=== PATIENT | female | born 1985 | race Caucasian/White ===

== ENCOUNTER 2019-04-05 11:51 | Outpatient (CLI) | payer OTHER, SELFPAY ==
--- NOTE | ~2019-04-05 | CT_ITS ---
EXAMINATION: CT abdomen pelvis w con DATE: 04/05/2019 12:56 INDICATION: Right lower quadrant abdominal pain. TECHNIQUE: Computed tomography (CT) of the abdomen and pelvis was performed with 100 mL Omnipaque 350 intravenous contrast. Automated exposure control and iterative reconstruction technique were employe d. The dose-length product was 1349.09 mGy-cm. COMPARISON: CT abdomen and pelvis 11/26/2017 FINDINGS: The visualized portions of the lung bases demonstrate mild atelectasis. No pleural effusion . The heart size is normal. No pericardial effusion. There is a small sliding hiatal hernia. There is a 9 mm cyst in the liver. There is a 2.6 cm cyst in the spleen. The gallbladder, pancreas, adrenal g lands, and kidneys are normal. There are no dilated loops of bowel. The appendix is normal. There is a 2.8 cm cyst in right ovary, likely a follicular cyst. There are no pathologically enlarged lymph no homar. There is no free intraperitoneal fluid. There is mild thoracolumbar spondylosis. IMPRESSION: 1. 2.8 cm cyst in right ovary, likely a follicular cyst. Reviewed, dictated and finalized at location A. LOADER
== END 2019-04-05 11:52 | disposition home or self-care (01) ==
LOC: ANHIMG 12:06
DX: R10.31 Right lower quadrant pain (principal); N83.201 Unspecified ovarian cyst, right side
CPT/HCPCS: 74177; Q9967

== ENCOUNTER 2019-06-21 16:51 | Emergency (ER) | payer OTHER, SELFPAY ==
[2019-06-21 16:59] VITALS: BP 151/83; PULSE 82; RESP 20; TEMP 36.7; O2SAT 97
--- NOTE | 2019-06-21 17:08 | ED.ABDPAIN ---
HPI - Abdominal Pain General Chief Complaint: Abdominal Pain <Bartolome Sheppard PA-C - Last Filed: 06/21/19 19:18> Stated Complaint: vomiting/9 weeks <Bartolome Sheppard PA-C - Last Filed: 06/21/19 19:18> Time Seen by Provider: 06/21/19 16:52 <Bartolome Sheppard PA-C - Last Filed: 06/21/19 19:18> Source: patient <Bartolome Sheppard PA-C - Last Filed: 06/21/19 19:18> Mode of arrival: ambulatory <Bartolome Sheppard PA-C - Last Filed: 06/21/19 19:18> Limitations: no limitations <Bartolome Sheppard PA-C - Last Filed: 06/21/19 19:18> History of Present Illness HPI narrative: Patient is a 34-year-old who presents at 9 weeks per ultrasound followed by [facility] patient is G6, P5. Patient notes that she has history of in this suspected subchorionic hemorrhage and has had some light spotting which has been persistent since the fifth week. Patient also notes some constipation with mild cramping of the abdomen for which she has not taken anything patient notes multiple episodes of emesis over the last several days has attempted Zofran and used a patch behind the ear. Patient denies fever URI symptoms or other complaints presents per private vehicle in no distress. <Bartolome Sheppard PA-C - Last Filed: 06/21/19 19:18> Related Data Allergies/Adverse Reactions: Allergies Allergy/AdvReac Type Severity Reaction Status Date / Time No Known Allergies Allergy Unverified 03/21/16 12:14 <Bartolome Sheppard PA-C - Last Filed: 06/21/19 19:18> Review of Systems Review of Systems: All systems reviewed & are unremarkable except as noted in HPI and below <Bartolome Sheppard PA-C - Last Filed: 06/21/19 19:18> [facility] Social History Social History: Social History Smoking status: Never smoker Alcohol intake: current Gender identity (if verbalized by the patient): Female <Bartolome Sheppard PA-C - Last Filed: 06/21/19 19:18> Exam Narrative: Exam Narrative: GENERAL: Well-appearing, obese, and in no acute distress. HEAD: Normocephalic, atraumatic. EYES: PERRLA and EOMI. ENT: Nares clear, no rhinorrhea or epistaxis. Mucous membranes moist. Oropharynx without tonsillar hypertrophy exudate or other lesions. CHEST: Clear to auscultation. No respiratory distress. No wheezes rales or rhonchi HEART: Regular rate and rhythm. No murmur heard. Normal peripheral pulses. ABDOMEN: Soft, mild tenderness of the abdomen no rebound or guarding, nondistended EXTREMITIES: Normal range of motion. No edema. SKIN: Warm, dry, no rash. NEURO: No focal deficits. Alert and oriented x3. PSYCH: Normal mood and affect. <SUNNY Fisher Last Filed: 06/21/19 19:18> Course Course Emergency Course: Patient in the room in no distress no high risk changes in the blood work will be discharged home with a different antiemetic also given advice on constipation patient was hydrated in the emergency department is feeling much better at this time <SUNNY Fisher Last Filed: 06/21/19 19:18> Vital Signs Vital signs: Vital Signs Temperature 36.7 C 06/21/19 16:59 Pulse Rate 82 06/21/19 16:59 Respiratory Rate 20 06/21/19 16:59 Blood Pressure 151/83 H 06/21/19 16:59 Pulse Oximetry 97 06/21/19 16:59 Temperature 36.7 C 06/21/19 16:59 Pulse Rate 84 06/21/19 19:49 Respiratory Rate 20 06/21/19 19:49 Blood Pressure 146/80 H 06/21/19 19:49 Pulse Oximetry 99 06/21/19 19:49 <SUNNY Fisher Last Filed: 06/21/19 19:18> Vital Signs Temperature 36.7 C 06/21/19 16:59 Pulse Rate 82 06/21/19 16:59 Respiratory Rate 20 06/21/19 16:59 Blood Pressure 151/83 H 06/21/19 16:59 Pulse Oximetry 97 06/21/19 16:59 Temperature 36.7 C 06/21/19 16:59 Pulse Rate 84 06/21/19 19:49 Respiratory Rate 20 06/21/19 19:49 Blood Pressure 146/80 H 06/21/19 19:49
[2019-06-21 17:58] VITALS: BP 113/66; PULSE 74; RESP 20; O2SAT 98
[2019-06-21 18:15] LABS: Basophils Percent Auto 0.3 % (0.2-1.2); Eosinophils Absolute Auto 0.2 K/mm3 (0-0.3); Eosinophils Percent Auto 1.5 % (0-4.4); Hematocrit 38.8 % (37.0-47.0); Hemoglobin 12.7 g/dL (12.0-15.0); Immature Granulocyte Absolute 0.05 K/mm3 (0.00-0.031); Immature Granulocyte Percent A 0.4 % (0-0.5); Lymphocytes Absolute Auto 1.67 K/mm3 (0.9-3.2); Lymphocytes Percent Auto 14.3 % (18.3-44.2); Mean Corpuscular HGB Conc 32.7 g/dl (32-36); Mean Corpuscular Hemoglobin 28.6 pg (26-34); Mean Corpuscular Volume 87.4 fl (80-100); Mean Platelet Volume 11.9 fl (7.4-10.4); Monocytes Absolute Auto 0.7 K/mm3 (0.1-0.6); Monocytes Percent Auto 5.9 % (2.6-8.5); Neutrophils Percent Auto 77.6 % (45.5-73.1); Platelet Count Result 202 k/mm3 (150-375); Red Blood Count 4.44 M/mm3 (4.2-5.4); White Blood Count 11.7 K/mm3 (4.5-10.0)
[2019-06-21] MEDS: PROCHLORPERAZINE EDISYLATE 10 MG/2 ML VIAL IV PUSH (18:20)
[2019-06-21] MEDS: FAMOTIDINE 20 MG/2 ML VIAL IV PUSH (18:21)
[2019-06-21] MEDS: DEXTROSE 5%/LACTATED RINGERS 1,000 ML 999 ML IV CONT (18:22)
[2019-06-21 18:27] LABS: Potassium 3.8 mmol/L (3.4-5.0)
[2019-06-21 18:28] LABS: Alanine Aminotransferase 14 U/L (4-35); Albumin Level 4.3 g/dL (3.5-5.1); Alkaline Phosphatase 44 U/L (38-126); Aspartate Amino Transferase 17 U/L (14-36); Bilirubin,Total 0.1 mg/dL (0.2-1.3); Blood Urea Nitrogen 11 mg/dL (7-17); Calcium 9.4 mg/dL (8.4-10.2); Carbon Dioxide 24 mmol/L (22-30); Chloride 103 mmol/L (98-107); Estimated CRCL calculation 142 ml/min; Estimated Glomerular Filt Rate > 60; Glucose 100 mg/dL (65-105); Lipase 31 U/L (23-300); Sodium 136 mmol/L (137-145)
[2019-06-21 19:12] LABS: Add Urine Microscopic? YES; Appearance Urine Cloudy (Clear); Bilirubin Urine Negative (Negative); Blood Urine 2+ (Negative); Color Urine Yellow (Yellow); Glucose Urine UA Negative (Negative); Ketones Urine 1+ mg/dL (Negative); Leukocyte Esterase Ur Negative LEU/UL (Negative); Mucus Urine Heavy /lpf; Nitrate Urine Negative (Negative); Protein Urine 1+ mg/dL (Negative); Renal Epithelial Cells Urine Rare /hpf (None Seen); Specific Grav Ur 1.032 (1.001-1.035); Squamous Epithelial Cell Urine Many /hpf (Few); Urobilinogen Urine Negative mg/dL (<2.0)
[2019-06-21 19:49] VITALS: BP 146/80; PULSE 84; RESP 20; O2SAT 99
== END 2019-06-21 19:52 | disposition home or self-care (01) ==
PROVIDERS: Emergency Medicine Emergency Medical Services; Emergency Provider Emergency Medicine
DX: O21.9 Vomiting of pregnancy, unspecified (principal); O99.611 Diseases of the digestive system complicating pregnancy, first trimester; K59.00 Constipation, unspecified; Z3A.09 9 weeks gestation of pregnancy
CPT/HCPCS: 36415; 80053; 81001; 83690; 85025; 87086; 87088; 96361; 96374; 96375; 99284; J0780; J1200; J7121

== ENCOUNTER 2019-11-01 15:52 | Outpatient (RCR) | payer OTHER, MEDICAID, SELFPAY ==
[2019-11-01 17:26] LABS: Hematocrit 35.1 % (37.0-47.0); Hemoglobin 11.6 g/dL (12.0-15.0)
[2019-11-01 17:39] LABS: Glucose 1 Hour PP 50gm Dose 156 mg/dL
[2019-11-01 18:26] LABS: HIV 1/2 Ab P24 Ag Result Negative (Negative)
[2019-11-02 09:31] LABS: Rapid Plasma Reagin Non-Reactive (NonReactive)
[2019-11-02] MEDS: RHO(D) IMMUNE GLOBULIN 300 MCG SYRINGE IM (15:14)
== END 2020-01-30 23:59 | disposition home or self-care (01) ==
LOC: ANHLAB 15:52
PROVIDERS: Visit Provider Obstetrics & Gynecology
DX: Z29.13 Encounter for prophylactic Rho(D) immune globulin (principal); Z11.4 Encounter for screening for human immunodeficiency virus [HIV]; O36.0130 Maternal care for anti-D [Rh] antibodies, third trimester, not applicable or unspecified; Z3A.00 Weeks of gestation of pregnancy not specified
CPT/HCPCS: 36415; 82947; 84443; 85014; 85018; 85461; 86592; 86703; 90384; 96372; G0432; J2790

== ENCOUNTER 2019-12-01 12:44 | Emergency (ER) | payer OTHER, MEDICAID, SELFPAY ==
[2019-12-01 12:50] VITALS: BP 109/63; PULSE 106; RESP 24; TEMP 36.7; O2SAT 98
--- NOTE | 2019-12-01 12:56 | ED.GENADULT ---
HPI - General Adult General Chief complaint: Upper Respiratory Infection Stated complaint: RUNNY NOSE/SORE THROAT/HEADACHE Time Seen by Provider: 12/01/19 12:56 Source: patient Mode of arrival: ambulatory Limitations: no limitations History of Present Illness HPI narrative: 34-year-old female patient presents to the [facility] with complaints of cold symptoms for the past 3 days. Patient is currently 33 weeks . Patient currently is on Macrobid for urinary tract infection. Patient states she has had a lot of nasal congestion and drainage, sinus pressure, headache and a sore throat. Patient states some mild coughing and sometimes does produce sputum with the cough. Denies any chest pain or shortness of breath. Patient states that she has been taking [id number] Zyrtec for her symptoms as well as montelukast for allergies. Patient denies any abdominal pain, nausea, vomiting or diarrhea. Related Data Home Medications Medication Instructions Recorded Confirmed levothyroxine [Synthroid] 12/01/19 nitrofurantoin monohyd/m-cryst 100 mg PO Q12H 12/01/19 12/01/19 [Macrobid] Allergies Allergy/AdvReac Type Severity Reaction Status Date / Time No Known Allergies Allergy Verified 12/01/19 12:49 Review of Systems Review of Systems: Narrative: CONSTITUTIONAL: Denies fever, chills, or sweats. EYES: Denies visual changes, redness, or discharge. ENT: Positive rhinorrhea, congestion, sore throat, denies otalgia. CARDIOVASCULAR: Denies chest pain, palpitations, or edema. RESPIRATORY: Positive cough, denies dyspnea. GASTROINTESTINAL: Denies abdominal pain, nausea, vomiting, or diarrhea. GENITOURINARY: Denies dysuria or hematuria. SKIN: Denies rash or itching. MUSCULOSKELETAL: Denies back pain, joint pain, or myalgia. NEUROLOGIC: Positive headache, denies numbness, or weakness. PSYCHIATRIC: Denies anxiety or depression. [facility] Social History Social History Smoking status: Never smoker Alcohol intake: current Gender identity (if verbalized by the patient): Female Comments At the time of my signature I agree with nursing past medical history, surgical, social, and family history. There is no relevant family history pertinent to the presenting complaint. Exam Narrative: Exam Narrative: GENERAL: Well-appearing, well-nourished, and in no acute distress. HEAD: Normocephalic, atraumatic. EYES: PERRLA and EOMI. ENT: Nares with erythema and edema noted bilaterally with the right nare swollen shut, no rhinorrhea or epistaxis. Mucous membranes moist. Posterior pharynx with slight erythema and some postnasal drip noted. No tonsil enlargement no exudates or lesions present. Bilateral TMs are clear no erythema or foreign bodies to the canal. NECK: Supple. No lymphadenopathy CHEST: Patient did have some slight expiratory rhonchi noted on auscultation to the bilateral upper lobes however did have patient deep cough and afterwards the rhonchi disappeared. No respiratory distress. HEART: Regular rate and rhythm. No murmur heard. Normal peripheral pulses. ABDOMEN: Soft, nontender, nondistended, normal active bowel sounds. EXTREMITIES: Normal range of motion. No edema. SKIN: Warm, dry, no rash. NEURO: No focal deficits. Alert and oriented x3. Course Reevaluation(s) Reevaluation #1: Reevaluated patient after labs have resulted. Discussed with her that her strep and her influenza were both negative today. Discussed with patient we will go ahead and send her for COVID testing. Discussed with patient that if her symptoms get worse that she develops chest pain, shortness of breath or worsening cough that she needs to report to the emergency department. Discussed with patient that she can continue taking [id number] remedies and I have provided her a list of safe medications that she can try [id number]. Patient verbalized understanding denies any other question
== END 2019-12-01 13:33 | disposition home or self-care (01) ==
PROVIDERS: Emergency Provider Nurse Practitioner Family
DX: O99.513 Diseases of the respiratory system complicating pregnancy, third trimester (principal); Z3A.33 33 weeks gestation of pregnancy; J06.9 Acute upper respiratory infection, unspecified; J00 Acute nasopharyngitis [common cold]; J01.90 Acute sinusitis, unspecified; Z20.828 Contact with and (suspected) exposure to other viral communicable diseases
CPT/HCPCS: 87081; 87804; 87880; 99213; G0463

== ENCOUNTER 2019-12-15 17:23 | Observation (INO) | payer OTHER, MEDICAID, SELFPAY ==
[2019-12-15 17:53] VITALS: BP 115/70; PULSE 111
[2019-12-15 17:55] VITALS: BMI 44.1
--- NOTE | 2019-12-15 17:58 | OBADM ---
This patient, Donita Medina, admitted to the OB room OB Post 115 for observation. Patient/family oriented to hospital policies and general routines including ID bracelet, bed and alarms, visiting hours, pain management, procedures, bathroom and other care routines, personal items, smoking policy, room service/diet, call light, and visiting hours. Patient/Family are encouraged to report perceived risks to care and to ask questions if they do not understand what they are told or what they should do.
--- NOTE | 2019-12-15 19:54 | PC.NURSE ---
reactive strip noted, FHT's 135 with 15x15 accels, no contractions noted.
--- NOTE | 2019-12-22 16:16 | PM.OBTRLD ---
OB - Triage/Final Diagnosis Visit Information Date of evaluation: 12/19/19 Reason for evaluation: threatened labor
== END 2019-12-15 19:20 | disposition home or self-care (01) ==
PROVIDERS: Admitting Provider Obstetrics & Gynecology; PCP Family Medicine; Visit Provider Obstetrics & Gynecology
DX: O47.03 False labor before 37 completed weeks of gestation, third trimester (principal); Z3A.34 34 weeks gestation of pregnancy
CPT/HCPCS: 84112; G0378; G0379

== ENCOUNTER 2019-12-27 12:37 | Observation (INO) | payer OTHER, MEDICAID, SELFPAY ==
--- NOTE | ~2019-12-27 | US_ITS ---
EXAMINATION: US OB BPP wo non-stress DATE: 12/27/2019 16:05 CDT INDICATION: decelerations. TECHNIQUE: Real-time transabdominal obstetric ultrasound. FINDINGS: There is a single living fetus in vertex presentation. The placenta is fundal/anterior without place nta previa. cardiac activity and movement is noted with a heart rate of 132 beats per minute. Biophysical profile: breathin of 2 movement: 2 of 2 tone: 2 of 2 Amniotic flud pocket: 2 of 2 Total score: 8 of 8 There is a pocket of fluid measuring 3.2 cm, although the amniotic fluid appears subjectively low. IMPRESSION: 1. Single living intrauterine in vertex presentation. 2: Total biophysical profile score of 8/8. 3: Amniotic fluid appears subjectively low, although no JOHN performed. Recommend attention to the am niotic fluid volume on follow-up examination. Reviewed, dictated and finalized at location B. IMPRESSION: 1. Single living intrauterine in vertex presentation. 2: Total biophysical profile score of 8/8. 3: Amniotic fluid appears subjectively low, although no JOHN performed. Recomme nd attention to the amniotic fluid volume on follow-up examination.
--- NOTE | 2019-12-27 12:37 | OBADM ---
This patient, Donita Medina, admitted to the OB room Labor/Delivery/Recovery 105 for observation. Patient/family oriented to hospital policies and general routines including ID bracelet, bed and alarms, visiting hours, pain management, procedures, bathroom and other care routines, personal items, smoking policy, room service/diet, and visiting hours. Patient/Family are encouraged to report perceived risks to care and to ask questions if they do not understand what they are told or what they should do.
[2019-12-27 13:20] VITALS: TEMP 36.6
[2019-12-27 17:03] VITALS: BMI 44.4
--- NOTE | 2019-12-30 03:06 | PM.OBTRLD ---
OB - Triage/Final Diagnosis Visit Information Date of evaluation: 12/26/19 Reason for evaluation: threatened labor
== END 2019-12-27 16:15 | disposition home or self-care (01) ==
PROVIDERS: Admitting Provider Obstetrics & Gynecology; PCP Family Medicine; Visit Provider Obstetrics & Gynecology
DX: O47.03 False labor before 37 completed weeks of gestation, third trimester (principal); Z3A.36 36 weeks gestation of pregnancy
CPT/HCPCS: 76819; G0378; G0379

== ENCOUNTER 2020-01-07 05:01 | Inpatient (IN) | payer OTHER, MEDICAID, SELFPAY ==
[2020-01-07] VITALS (60 sets, daily range): BP systolic 79–126; BP diastolic 40–82; PULSE 77–121; RESP 12; TEMP 36.3–36.6; O2SAT 96–100; BMI 43.7
--- NOTE | 2020-01-07 05:38 | LDADM ---
This patient, Donita Medina, was admitted to Labor/Delivery/Recovery 106 on 01/07/20 at 05:01. Plans for labor, pain management and were discussed with patient. Patient/family oriented to hospital policies and general routines including ID bracelet, bed and alarms, visiting hours, pain management, procedures, bathroom and other care routines, personal items, smoking policy, room service/diet and guest tray routines, security routines, and visiting hours. Patient/Family are encouraged to report perceived risks to care and to ask questions if they do not understand what they are told or what they should do. See OBIX for further documentation.
[2020-01-07 05:54] LABS: Basophils Percent Auto 0.2 % (0.2-1.2); Eosinophils Absolute Auto 0.1 K/mm3 (0-0.3); Eosinophils Percent Auto 1.3 % (0-4.4); Hematocrit 36.2 % (37.0-47.0); Hemoglobin 11.9 g/dL (12.0-15.0); Immature Granulocyte Absolute 0.07 K/mm3 (0.00-0.031); Immature Granulocyte Percent A 0.7 % (0-0.5); Lymphocytes Absolute Auto 1.71 K/mm3 (0.9-3.2); Lymphocytes Percent Auto 16.8 % (18.3-44.2); Mean Corpuscular HGB Conc 32.9 g/dl (32-36); Mean Corpuscular Hemoglobin 28.2 pg (26-34); Mean Corpuscular Volume 85.8 fl (80-100); Mean Platelet Volume 12.5 fl (7.4-10.4); Monocytes Absolute Auto 0.7 K/mm3 (0.1-0.6); Monocytes Percent Auto 6.7 % (2.6-8.5); Neutrophils Absolute Auto 7.6 K/mm3 (1.3-6.7); Neutrophils Percent Auto 74.3 % (45.5-73.1); Platelet Count Result 171 k/mm3 (150-375); Red Blood Count 4.22 M/mm3 (4.2-5.4); Red Cell Distribution Width 15.5 % (11.5-14.5); White Blood Count 10.2 K/mm3 (4.5-10.0)
[2020-01-07] MEDS: LACTATED RINGERS 1,000 ML 125 ML IV CONT ×2 (05:54→06:20)
--- NOTE | 2020-01-07 07:09 | WPDANESEPP ---
Anes - Eval Pre Procedure Procedure: Labor epidural Date/Time: 01/07/20 07:09 Surgeon: Guanako Aguiar M.D. Preop Diagnosis: pain during labor Pre Op Diagnosis: Contractions Patient Data Age: 34 Gender: F Height: 1.68 m Weight: 122.75 kg Last Vital Signs Pulse 103 H 01/07/20 07:04 BP 117/49 L 01/07/20 07:04 Pulse Ox 98 01/07/20 07:05 Allergies Allergy/AdvReac Type Severity Reaction Status Date / Time No Known Allergies Allergy Verified 12/01/19 12:49 Home Medications Medication Instructions Recorded Confirmed Type PNV cmb#95-ferrous fumarate-FA 1 tablet PO DAILY 12/24/19 12/24/19 History [] levothyroxine 125 mcg PO DAILY 12/24/19 12/24/19 History Laboratory Tests 01/07/20 01/07/20 01/07/20 05:46 05:46 05:46 WBC 10.2 K/mm3 H K/mm3 (4.5-10.0) RBC 4.22 M/mm3 M/mm3 (4.2-5.4) Hgb 11.9 g/dL L g/dL (12.0-15.0) Hct 36.2 % L % (37.0-47.0) MCV 85.8 fl fl (80-100) MCH 28.2 pg pg (26-34) MCHC 32.9 g/dl g/dl (32-36) RDW 15.5 % H % (11.5-14.5) Plt Count 171 k/mm3 k/mm3 (150-375) MPV 12.5 fl H fl (7.4-10.4) Immature Gran % (Auto) 0.7 % H % (0-0.5) Neut % (Auto) 74.3 % H % (45.5-73.1) Lymph % (Auto) 16.8 % L % (18.3-44.2) [place] % (Auto) 6.7 % % (2.6-8.5) Eos % (Auto) 1.3 % % (0-4.4) Baso % (Auto) 0.2 % % (0.2-1.2) Lymph # (Auto) 1.71 K/mm3 K/mm3 (0.9-3.2) [place] # (Auto) 0.7 K/mm3 H K/mm3 (0.1-0.6) Eos # (Auto) 0.1 K/mm3 K/mm3 (0-0.3) Baso # (Auto) 0.0 K/mm3 K/mm3 (0.0-0.1) Abs Immat Gran (auto) 0.07 K/mm3 H K/mm3 (0.00-0.031) Absolute Neuts (auto) 7.6 K/mm3 H K/mm3 (1.3-6.7) Absolute Nucleated RBC 0.0 K/mm3 K/mm3 (0.0-0.012) Nucleated RBC % 0.0 % % (0.0-0.2) RPR Pending Blood Type O Negative Antibody Screen Negative Patient hx anesthesia problems: none Family hx anesthesia problems: none PMFSH Past Medical History Medical History (Updated 01/07/20 @ 07:09 by Harriett Freeman CRNA) IUP (intrauterine ), incidental Morbid obesity with BMI of 50.0-59.9, adult Family History Family History (Updated 12/24/19 @ 15:25 by Barb Carbajal RN) Other No pertinent family history Social History Social History Smoking status: Never smoker Alcohol intake: current Substance use: never Gender identity (if verbalized by the patient): Female Spiritual care concerns: No Exam Day of Procedure 01/07/20 07:09
--- NOTE | 2020-01-07 07:24 | WPDOBADMIT ---
Obstetrics - Admit Note Admission Note: record reviewed. No pertinent additions to the history and/or any subsequent changes in the physical findings that are not consistent with the expected course of the were found. pt arrived with SROM, GBS negative, hx hypothyroid and LGA Additions to the history and/or subsequent changes in the physical findings follow. None.
[2020-01-07] MEDS: OXYTOCIN 30 UNITS/NS 500 ML 30 UNITS/500 ML BAG 999 UNITS IV CONT (08:35)
--- NOTE | 2020-01-07 08:39 | PM.OBPRVD ---
OB - Delivery Note Procedure Delivery date: 01/07/20 Procedure: vaginal delivery Delivery monitor: external FHT and external uterine Route of delivery: Laceration Description: None Specimen: No Estimated blood loss (mL): 45 Anesthesia type: Epidural Disposition: other () Baby Date of : 01/07/20 Time of : 08:30 Weeks of gestation at delivery: 37 Infant gender: Male Weight (pounds): 8 Weight (ounces): 9 presentation: vertex position: Left Occiput Anterior Placenta delivery description: Spontaneous cord vessel description: 3 Vessels, Nuchal Cord, True Knot and Around Extremity x2 (arm) score one minute: 8 score five minutes: 9 Narrative: mother and baby skin to skin in stable condition
[2020-01-07] MEDS: OXYTOCIN 30 UNITS/NS 500 ML 30 UNITS/500 ML BAG 125 UNITS IV CONT (09:06)
--- NOTE | 2020-01-07 13:02 | OBPPTRN ---
1120 Patient transferred to post room #288 via W/C. Support person present. Oriented to unit, room, information board, rooming in, admission packet and security measures. Patient verbalizes understanding.
[2020-01-07] MEDS: IBUPROFEN 600 MG TABLET PO (19:39)
--- NOTE | 2020-01-08 01:07 | PC.NURSE ---
Daylight Savings Time For Daylight Savings Time Ending in the Fall - Clocks are moved back. For Daylight Savings Time Beginning in the Spring - Clocks are moved ahead. For [facility], the time of change occurs at 0200 hrs. Time is taken from the breakfast server. This entry on the patient's chart recognizes the change in time reflected during documentation. Example: 2 entries for vital signs may be charted for 0200 hrs.
[2020-01-08] MEDS: IBUPROFEN 600 MG TABLET PO ×2 (05:08→13:43)
[2020-01-08 05:44] LABS: Hemoglobin 10.9 g/dL (12.0-15.0)
[2020-01-08] MEDS: MULTIVIT/MIN/PREN/FOL AC/IRON TABLET 1 TAB PO (07:16)
[2020-01-08 07:17] VITALS: BP 100/56; PULSE 77; RESP 12; TEMP 36.3; O2SAT 98
[2020-01-08] MEDS: LEVOTHYROXINE SODIUM 125 MCG TABLET PO (07:17)
--- NOTE | 2020-01-08 09:18 | PM.OBPNVD ---
OB - PN: Subj Subjective Date/time seen: 01/08/20 09:18 Patient comments: no complaints baby status: doing well OB - PN: Obj Data Labs CBC & Chem 7: 01/08/20 05:07 Labs: Laboratory Results - last 24 hr 01/08/20 01/08/20 05:07 05:07 Hgb 10.9 L Hct 34.0 L Blood Type O Negative Antibody Screen Negative Screen Negative Baby's Blood Type O pos Baby's JONNY Negative Doses of RhIg Required 1 OB - PN A/P Plan day: 1 Plan: routine care and discharge home Time Spent With Patient Time: Total time spent is greater than 50% in coordination of care (as documented) at patient's floor/unit and/or counseling patient: Review of Systems Review of Systems: All systems reviewed & are unremarkable except as noted in HPI and below Exam Const: General: cooperative Nutritional Appearance: average body habitus Orientation/consciousness: patient oriented x3 Psych: Insight: Good insight present (Psych) Judgement: Good judgement present (Psych)
[2020-01-08] MEDS: RHO(D) IMMUNE GLOBULIN 300 MCG SYRINGE IM (12:29)
--- NOTE | 2020-01-08 14:42 | WPDANLDPN2 ---
Anes-Prog Note L&D Date/Time: 01/08/20 14:42 Comfortable throughout: labor and delivery Neuraxial method: epidural Epidural/Spinal procedure site: clean & non-tender Neuro status: Neuro function grossly intact. Cardiovascular status: normal Respiratory status: normal Airway patency: baseline Mental status: baseline Post-Op hydration status: normal Vital Signs: Last Vital Signs Temp 36.6 C 01/07/20 20:30 Pulse 86 01/07/20 20:30 Resp 12 01/07/20 20:30 BP 109/57 L 01/07/20 20:30 Pulse Ox 97 01/07/20 20:30 Pain score (VAS): 0/0 Post-procedural complaints: none Patient feedback: Patient satisfied with anesthetic care.
--- NOTE | 2020-01-08 16:37 | PC.NURSE ---
Patient viewed the discharge video Mother & Baby Care, The First Two Weeks . Patient was given the opportunity and encouraged to ask questions. Patient verbalized understanding of information shared and has been given the mother/baby guide for home reference.
[2020-01-09 09:56] LABS: Rapid Plasma Reagin Non-Reactive (NonReactive)
--- NOTE | 2020-01-10 18:36 | PM.OBDSVD ---
DS: Admitting Diagnosis Admitting Diagnosis Admitting Diagnosis: Contractions OB - DS: Summary OB Procedures : None OB Procedures Intrapartum: Spontaneous Vag Delivery OB Procedures: : None Time Spent with Patient Time attestation: Total time spent providing and/or coordinating discharge services: Discharge Plan Discharge Attending physician on discharge: Adalid Aguiar Discharging Clinician: Kelli Polk Patient Disposition: Home, Self-Care Activity: pelvic rest Diet: regular Discharge Instructions: Education: Mom and Baby Guide Given to: Patient Follow-Up: Call your delivering provider's office for an appointment to be seen in: 4-6 weeks Mom and baby should come to the [facility] for the follow-up appointment. Appointment Date/Time: Thursday01/10/2020 at 8:00 am Call [phone] if you are unable to keep your appointment time. BREAST CARE: * Wear a snug supportive bra. * For engorgement discomfort: Breast Feeding: * Apply warm moist washcloths * Express milk as needed to relieve engorgement * Wear loose clothing Bottle Feeding: * May apply ice packs * For sore nipples: * Identify correct latch-on * Apply warm moist washcloths before and after nursing * Air dry nipples after nursing * May apply Lansinoh cream to nipples PERINEAL CARE: * Until bleeding stops, use your jatin bottle after urinating * Change your pad frequently throughout the day * You may take sitz baths several times a day (fill your bathtub with warm water and soak for 20 minutes.) Do NOT bathe in the water * No tub baths until seen by your physician - You may shower ACTIVITY: * Rest as much as possible. * Do not exercise or lift anything heavier than your baby (such as laundry or other children.) * Avoid stairs or driving as much as possible. * Do not put anything into the vagina. No douching, tampons, or sexual activity until seen by physician. NOTIFY PHYSICIAN IF YOU HAVE ANY QUESTIONS OR IF ANY OF THE FOLLOWING SYMPTOMS OCCUR: * If your episiotomy or incision becomes red, swollen, or more painful than what you have experienced in the hospital. * If your vaginal bleeding becomes foul smelling. * If your vaginal bleeding becomes more heavy than a period or if your bleeding changes from pink to bright red. However, you may pass an occasional walnut-sized clot once or twice for the first week . * If you experience a sharp, shooting pain in you calves. * If you discover a hard, reddened area on your breast or if you experience flu-like symptoms. DIET: * Eat regular, well-balanced meals. * Drink plenty of fluids daily. If , drink to thirst. Follow-up/Referrals: Kelli Polk CNM [Certified Nurse Traveling Passenger Agent] - 4 Weeks Discharge Medications: Continued levothyroxine 125 mcg Tablet 125 mcg PO DAILY RF: 0 PNV cmb#95-ferrous fumarate-FA [] 28 mg iron- 800 mcg Tablet 1 tablet PO DAILY RF: 0 Date of admission: 01/07/20 05:01 Primary Care Provider: Gilbert,Pepe Dumont Admitting Provider: Adalid Aguiar Attending physician on admission: Adalid Aguiar Condition: Stable
== END 2020-01-08 15:00 | disposition home or self-care (01) | DRG 807 ==
LOC: ANHLDR 05:20 → ANHOB2 11:26
PROVIDERS: Advanced Practice Midwife; Admitting Provider Obstetrics & Gynecology; PCP Family Medicine; Visit Provider Obstetrics & Gynecology
DX: O99.284 Endocrine, nutritional and metabolic diseases complicating childbirth (principal); Z37.0 Single live birth; Z3A.37 37 weeks gestation of pregnancy; E03.9 Hypothyroidism, unspecified; O69.2XX0 Labor and delivery complicated by other cord entanglement, with compression, not applicable or unspecified
CPT/HCPCS: 36415; 85014; 85018; 85025; 85461; 86592; 86850; 86900; 86901; 90384; A9270; J2590; J2790; J2795; J7120

== ENCOUNTER 2020-02-25 00:57 | Outpatient (CLI) | payer OTHER, MEDICAID, SELFPAY ==
[2020-02-25 18:59] LABS: SARS-CoV-2 RNA PCR Negative
== END 2020-02-25 00:58 | disposition home or self-care (01) ==
LOC: ANHCOVIDDT 00:58
PROVIDERS: PCP Family Medicine; Visit Provider Obstetrics & Gynecology
DX: Z01.812 Encounter for preprocedural laboratory examination (principal); Z20.828 Contact with and (suspected) exposure to other viral communicable diseases
CPT/HCPCS: 87635; C9803; U0003

== ENCOUNTER 2020-02-28 01:38 | Day surgery (SDC) | payer OTHER, MEDICAID, SELFPAY ==
[2020-02-17 14:50] VITALS: BMI 38.7
--- NOTE | 2020-02-27 12:24 | WPDANESEPPF ---
Anes - Initial Pre Proc Eval Procedure: Operation Date: 02/28/20 11:00 Proposed Procedures p Laparoscopic Bilateral Tubal Sterilization wtih Cautery - Adalid Aguiar MD Date/Time: 02/27/20 12:24 Surgeon: Adalid Aguiar MD Pre Op Diagnosis: sterilization Patient Data Age: 35 Gender: F Height: 1.68 m Weight: 109 kg Allergies Allergy/AdvReac Type Severity Reaction Status Date / Time No Known Allergies Allergy Verified 02/28/20 09:42 Home Medications Medication Instructions Recorded Confirmed Type PNV cmb#95-ferrous fumarate-FA 1 tablet PO DAILY 12/24/19 02/28/20 History [] levothyroxine 125 mcg PO DAILY 12/24/19 02/28/20 History montelukast 10 mg PO DAILY PRN 02/17/20 02/28/20 History Patient hx anesthesia problems: none Family hx anesthesia problems: none PMFSH Past Medical History Medical History (Updated 02/27/20 @ 12:25 by Juanito Barroso MD) Hypothyroidism IUP (intrauterine ), incidental Obesity Family History Family History (Updated 12/24/19 @ 15:25 by Barb Carbajal RN) Other No pertinent family history Social History Social History Smoking status: Never smoker Second hand tobacco smoke exposure: No Alcohol intake: current Substance use: never Living arrangements: with family Gender identity (if verbalized by the patient): Female Spiritual care concerns: No Anes - Eval Final PreProcedure Day of Procedure 02/27/20 12:24 Patient weight: obese Heart: regular rate and rhythm Lungs: clear to auscultation and normal air movement Airway: Mallampati scale class II Neurological: alert and oriented Last oral intake: >/= 8 hours ASA classification: II Emergent: no Anesthetic plan: proceed Anesthesia type and monitoring: general ETT Informed Consent: The patient's anesthetic plan and its attendant risks and benefits were discussed with the patient/family/POA. Questions were solicited and answers provided to the satisfaction of the patient/family/POA.
[2020-02-28] VITALS (8 sets, daily range): BP systolic 96–127; BP diastolic 40–81; PULSE 51–73; RESP 12–20; TEMP 36.1–36.7; O2SAT 95–100
[2020-02-28] MEDS: ACETAMINOPHEN 500 MG TABLET 1000 MG PO (09:10)
[2020-02-28] MEDS: LACTATED RINGERS 1,000 ML 30 ML IV CONT ×2 (09:21→12:13)
[2020-02-28] MEDS: KETOROLAC 15 MG/ML VIAL (*BKC) IV PUSH (09:28)
--- NOTE | 2020-02-28 10:39 | WPDHPUPDATE1 ---
History and Physical Update Update Date/Time: 02/28/20 10:39 History and Physical has been reviewed, including an updated exam of the patient. There are NO changes in the patient's condition. Risks, benefits, and alternatives have been discussed and questions answered. Patient agrees to proceed with procedure.
--- NOTE | 2020-02-28 10:54 | PM.IMHP ---
H&P: HPI History of Present Illness Date/Time: 02/28/20 10:54 Chief Complaint: Female sterilization Narrative: Donita Medina is a 35 year old female, multiparous, who desires female sterilization. Agreed to perform laparoscopic bilateral tubal ligation. She understands there is risk to the surgery patient since that injuries may occur that result in hospitalization, more surgery, and severe illness. She understands risk of hemorrhage and infection. Review of Systems Constitutional: Constitutional: Reports no additional constitutional complaints, Denies fatigue, Denies headache(s), Denies lethargy and Denies weakness Eyes: Eyes: Reports no additional eye complaints, Denies blurry vision and Denies photophobia ENT: Reports as per HPI, Denies headache(s) and Denies neck pain Cardiovascular: Cardiovascular: Denies chest pain, Denies diaphoresis, Denies leg edema, Denies palpitations and Denies dyspnea Respiratory: Respiratory: Denies hemoptysis, Denies dyspnea and Denies wheezing Gastrointestinal: Gastrointestinal: Denies abdominal pain, Denies melena, Denies bloating, Denies hematochezia, Denies nausea and Denies vomiting Genitourinary: Genitourinary: Reports no additional female genitourinary complaints Musculoskeletal: Musculoskeletal: Denies joint swelling, Denies neck pain, Denies numbness and Denies stiffness Neurologic: Denies Abnormal speech present, Denies confusion, Denies headache(s), Denies numbness and Denies weakness Psychiatric: Psychiatric: Denies anxiety, Denies confusion, Denies depression, Denies homicidal ideation and Denies suicidal ideation Endocrine: Endocrine: Denies fatigue and Denies palpitations Allergic/Immunologic: Allergic/Immunologic: Denies wheezing PMFSH Past Medical History Medical History (Updated 02/28/20 @ 10:55 by Adalid Aguiar MD) Hypothyroidism IUP (intrauterine ), incidental Obesity Family History Family History (Updated 12/24/19 @ 15:25 by Barb Carbajal RN) Other No pertinent family history Social History Social History Smoking status: Never smoker Second hand tobacco smoke exposure: No Alcohol intake: current Substance use: never Living arrangements: with family Gender identity (if verbalized by the patient): Female Spiritual care concerns: No Meds Home Medications and Allergies Home Medications Medication Instructions Recorded Confirmed Type PNV cmb#95-ferrous fumarate-FA 1 tablet PO DAILY 12/24/19 02/28/20 History [] levothyroxine 125 mcg PO DAILY 12/24/19 02/28/20 History montelukast 10 mg PO DAILY PRN 02/17/20 02/28/20 History Allergies Allergy/AdvReac Type Severity Reaction Status Date / Time No Known Allergies Allergy Verified 02/28/20 09:42 Vital Signs Vital Signs - 24 hr 02/28/20 09:22 Temperature 98.1 F Pulse Rate 73 Respiratory Rate 20 Blood Pressure 96/63 L Pulse Oximetry 98 Exam Const: General: healthy appearing, comfortable and no acute distress; No confusion Orientation/consciousness: No confusion Eyes: Direct Ophthalmoscopy: No photophobia Resp: Auscultation: clear to auscultation bilaterally, no rales, no rhonchi and no wheezes Cardio: Rate: regular rate Heart sounds: no click, no murmurs and no rubs GI: Inspection: non-distended GI Palp: No abdominal tenderness Auscultation: normal bowel sounds Neuro: General: No confusion Speech: No Abnormal speech present Extrem: General: normal to inspection, no pedal edema and no calf tenderness Assessment and Plan Assessment and plan (1) Encounter for female sterilization procedure: Code(s): Z30.2 - Encounter for sterilization Status: Acute Assessment and Plan: This patient is a 35-year-old female who desires sterilization. We have agreed to perform laparoscopic bilateral tubal ligation. She understands the risks, benefits, and alternatives.
--- NOTE | 2020-02-28 11:29 | PM.PROC ---
Procedure Note - Detailed Date of procedure: 02/28/20 Pre-op diagnosis: sterilization Post-op diagnosis: same Procedure performed: Laparoscopic bilateral tubal ligation Description of procedure: Patient was taken the operating room. She has prepped draped in the dorsal lithotomy position after induction of general anesthesia. A 5 mm abdominal incision was made in left upper quadrant of the abdomen with scalpel. A 5 mm trocars inserted the intra-abdominal cavity under direct visualization of the scope. Pneumoperitoneum was achieved. A 5 mm periumbilical incision was made using a scalpel on the abdominal scan. A 5 mm trocar was inserted the intra-abdominal cavity under visualization of the scope. The fallopian tube was grasped with the bipolar cautery in the ampullary region. It was completely desiccated in a 1.5 cm area of the fallopian tube. This was performed in identical fashion on the contralateral side. The instruments were withdrawn. The pneumoperitoneum was reduced. The trocars were removed. The skin was closed with subcuticular 4 Monocryl. This incisions were covered with Dermabond. The patient tolerated the procedure well. She was taken to recover room in stable condition. Anesthesia: GETA Surgeon: Adalid Aguiar MD Estimated blood loss (mL): 10 Drains: No Packing: No Pathology: none sent Complications: No immediate complications Condition: stable Disposition: PACU Findings: Normal female pelvic anatomy.
[2020-02-28] MEDS: fentaNYL CITRATE INJ (*CRX) 100 MCG/2 ML VIAL 25 MCG IV PUSH ×2 (12:14→12:18)
== END 2020-02-28 13:15 | disposition home or self-care (01) ==
PROVIDERS: PCP Family Medicine; Visit Provider Obstetrics & Gynecology
PROC: (CPT 58671; principal; 2020-02-28 11:00)
DX: Z30.2 Encounter for sterilization (principal); E03.9 Hypothyroidism, unspecified; E66.8 Other obesity; Z68.39 Body mass index [BMI] 39.0-39.9, adult
CPT/HCPCS: 58670; 87635; A9270; C9803; J0330; J1100; J1885; J2250; J2405; J2704; J3010; J7120; U0003

== ENCOUNTER 2020-10-25 12:09 | Emergency (ER) | payer OTHER, SELFPAY ==
[2020-10-25 12:16] VITALS: BP 116/66; PULSE 81; RESP 14; TEMP 36.7; O2SAT 99
[2020-10-25 12:39] VITALS: BP 116/66; PULSE 81; RESP 14; TEMP 36.7; O2SAT 99
--- NOTE | 2020-10-25 12:56 | ED.NAVMDI ---
HPI - Nausea/Vomiting/Diarrhea General Chief complaint: Nausea/Vomiting/Diarrhea Stated complaint: heart racing diarhhea nausea fever Time Seen by Provider: 10/25/20 12:13 Source: patient Mode of arrival: ambulatory Limitations: no limitations History of Present Illness HPI Narrative: 35-year-old female presents to [facility] with complaints of body aches, runny nose, nausea, diarrhea, headache and intermittent shortness of breath for the past 2 to 3 days. Patient reports that a coworker did test positive for Covid approximately 2 weeks ago. Patient is Covid vaccinated. Patient is a non-smoker. Patient denies cough, wheezing, vomiting or fevers. MD elicited complaint: nausea and diarrhea Associated abdominal pain: No Related Data Home Medications Medication Instructions Recorded Confirmed levothyroxine 125 mcg PO DAILY 12/24/19 10/25/20 Allergies Allergy/AdvReac Type Severity Reaction Status Date / Time No Known Allergies Allergy Verified 10/25/20 12:37 Review of Systems Constitutional: Constitutional: Denies chills, Denies fever(s) and Denies weakness Comments: Body aches ENT: Denies epistaxis, Denies nasal congestion and Denies sore throat Cardiovascular: Cardiovascular: Denies chest pain Respiratory: Respiratory: Denies cough, Reports dyspnea and Denies wheezing Gastrointestinal: Gastrointestinal: Denies abdominal pain, Reports diarrhea, Reports nausea and Denies vomiting Integumentary/Breasts: Skin/Breast: Denies rash PMFSH Past Medical History Medical History Hypothyroidism IUP (intrauterine ), incidental Obesity Family History Family History Other No pertinent family history Social History Social History Smoking status: Never smoker Second hand tobacco smoke exposure: No Alcohol intake: current Substance use: never Gender identity (if verbalized by the patient): Female Spiritual care concerns: No Comments At time of signature, I agree with nursing past medical, surgical, social and family history. There is no relevant family history pertinent to the presenting complaint. Exam Const: General: healthy appearing and no acute distress Orientation/consciousness: patient oriented x3 HENMT: Head: normal to inspection General nose exam: Normal nares present Face and sinus: normal facial exam Mouth: Yes moist mucous membranes Throat: uvula midline Neck: Neck: normal visual inspection Resp: Effort & Inspection: normal respiratory effort, not labored and not tachypneic Auscultation: clear to auscultation bilaterally Cardio: Rate: regular rate, not bradycardic and not tachycardic Rhythm: regular rhythm Skin: General skin exam: normal color Rashes: no rashes Neuro: General: patient oriented x3 and moves all extremities Psych: Affect: normal affect Attitude: cooperative Course Vital Signs Vital signs: Vital Signs Temperature 36.7 C 10/25/20 12:16 Pulse Rate 81 10/25/20 12:16 Respiratory Rate 14 10/25/20 12:16 Blood Pressure 116/66 10/25/20 12:16 Pulse Oximetry 99 10/25/20 12:16 Temperature 36.7 C 10/25/20 12:39 Pulse Rate 81 10/25/20 12:39 Respiratory Rate 14 10/25/20 12:39 Blood Pressure 116/66 10/25/20 12:39 Pulse Oximetry 99 10/25/20 12:39 MDM - Nausea/Vomiting/Diarrhea MDM Narrative Medical decision making narrative: Negative strep and rapid Covid discussed with patient. PCR Covid was obtained and sent to lab. Patient understand that she is to self quarantine pending results. Patient agrees to rest, increase fluids and follow-up with diet. Patient agrees take [id number] Motrin and Tylenol cold medications as prescribed. Patient agrees to monitor symptoms closely and agrees to proceed to the emergency room if symptoms worsen Differential Diag
[2020-10-26 20:11] LABS: SARS-CoV-2 RNA PCR Negative
== END 2020-10-25 13:04 | disposition home or self-care (01) ==
PROVIDERS: Emergency Provider Nurse Practitioner Family; PCP Family Medicine
DX: B34.9 Viral infection, unspecified (principal); Z20.822 Contact with and (suspected) exposure to COVID-19; E03.9 Hypothyroidism, unspecified; E66.9 Obesity, unspecified; Z68.38 Body mass index [BMI] 38.0-38.9, adult
CPT/HCPCS: 87081; 87426; 87880; 99213; C9803; G0463; U0003; U0005

== ENCOUNTER → 2020-12-28 15:50 | Outpatient (CLI) | payer OTHER, MEDICAID, SELFPAY ==
--- NOTE | ~2020-12-28 | XR_ITS ---
EXAMINATION: XR lumbar spine min 4V DATE: 12/28/2020 16:30 INDICATION: Low back pain TECHNIQUE: Anteroposterior, lateral, and bilateral oblique views of the lumbar spine, and cone-down l ateral view of the lumbosacral junction were obtained. COMPARISON: None. FINDINGS: There is no fracture, dislocation, or subluxation. The vertebral body heights, alignment, a nd intervertebral disc spaces are normal. The paravertebral soft tissues are unremarkable. IMPRESSION: 1. No acute osseous abnormality. Reviewed, dictated and finalized at location A.
--- NOTE | ~2020-12-28 | CT_ITS ---
EXAMINATION: CT BRAIN W/O DATE: 12/28/2020 16:15 INDICATION: Intractable headache TECHNIQUE: Computed tomography (CT) of the head was performed without intravenous contrast. The dose- length product was 599.57 mGy-cm. Automated exposure control and iterative reconstruction technique w ere employed. COMPARISON: No prior studies for comparison. FINDINGS: Normal brain parenchymal volume for age. Normal castelan-white differentiation. No acute intrac ranial hemorrhage, infarction, mass or mass effect. No ventriculomegaly or midline shift. Midline sagittal images demonstrate a normal corpus callosum, c raniovertebral junction and sella turcica. Basilar cisterns are patent. Paranasal sinuses and mastoids are pneumatized. No depressed skull fractures. IMPRESSION: 1. No acute intracranial abnormality. Reviewed, dictated and finalized at location B.
--- NOTE | ~2020-12-28 | XR_ITS ---
EXAMINATION: XR thoracic spine 3V DATE: 12/28/2020 16:30 INDICATION: Back pain TECHNIQUE: AP, lateral and lateral swimmer's views of the thoracic spine were obtained. COMPARISON: None. FINDINGS: There is no fracture, dislocation, or subluxation. The vertebral body heights are normal. T here is mild loss of intervertebral disc space height in the midthoracic spine. Small degenerative os teophytes project from the anterior endplates of multiple vertebral bodies. IMPRESSION: 1. Mild thoracic spondylosis without acute findings. Reviewed, dictated and finalized at location A.
== END ==
PROVIDERS: PCP Family Medicine; Visit Provider Family Medicine
DX: R51.9 Headache, unspecified (principal); M54.41 Lumbago with sciatica, right side; M47.814 Spondylosis without myelopathy or radiculopathy, thoracic region
CPT/HCPCS: 70450; 72072; 72110

== ENCOUNTER 2021-01-05 08:07 | Emergency (ER) | payer OTHER, MEDICAID, SELFPAY ==
[2021-01-05 08:20] VITALS: BP 123/69; PULSE 82; RESP 16; TEMP 36.1; O2SAT 98
--- NOTE | 2021-01-05 09:08 | ED.URI ---
HPI - URI/Sore Throat General Chief Complaint: Upper Respiratory Infection Stated Complaint: nose and head abhilash,nose drainage,cough Time Seen by Provider: 01/05/21 09:11 Source: patient and RN notes reviewed Mode of arrival: ambulatory Limitations: no limitations History of Present Illness HPI Narrative: Joseline is a 35-year-old female patient who ambulated into the [facility]. Patient states she has a 3-day history of nasal congestion and sinus pain. Patient states she used 1 dose of Flonase and it did not work. Patient states she has used oclz-dac-yfoqxjw cold medicine without relief. Patient states her only past medical history is hypothyroidism. Patient states she is still eating and drinking without difficulty. MD elicited complaint: nasal congestion Related Data Home Medications Medication Instructions Recorded Confirmed levothyroxine 125 mcg PO DAILY 12/24/19 01/05/21 Allergies Allergy/AdvReac Type Severity Reaction Status Date / Time No Known Allergies Allergy Verified 01/05/21 08:24 Review of Systems Review of Systems: CONSTITUTIONAL: Denies body aches, fever, chills, or sweats. EYES: Denies visual changes, redness, or discharge. ENT: + rhinorrhea,+ congestion, denies sore throat, or otalgia. CARDIOVASCULAR: Denies chest pain, palpitations, or edema. RESPIRATORY: Denies cough or dyspnea. GASTROINTESTINAL: Denies abdominal pain, nausea, vomiting, or diarrhea. GENITOURINARY: Denies dysuria or hematuria. SKIN: Denies rash, itching, or wounds. MUSCULOSKELETAL: Denies back pain, joint pain, or myalgia. NEUROLOGIC: Denies headache, numbness, tingling, or weakness. PSYCH: Denies depression or anxiety. All systems reviewed & are unremarkable except as noted in HPI and below PMFSH Past Medical History Medical History Hypothyroidism IUP (intrauterine ), incidental Obesity Family History Family History Other No pertinent family history Social History Social History Smoking status: Never smoker Second hand tobacco smoke exposure: No Alcohol intake: current Substance use: never Gender identity (if verbalized by the patient): Female Spiritual care concerns: No Comments At time of signature, I have reviewed and agree with nursing past medical, surgical, social and family history unless otherwise noted. Please see nursing chart for further information. There is no relevant family history pertinent to the presenting complaint Exam Narrative: GENERAL: Well-appearing, well-nourished, and in no acute distress. HEAD: Normocephalic, atraumatic. EYES: EOMI. No redness or drainage. Conjunctivae normal. ENT: Mucous membranes pink and moist. Nares membranes erythemic with clear rhinorrhea. TMs dull, with moderate drainage. Throat with minimal erythema, minimal clear post nasal drainage. Uvula midline. NECK: Normal AROM. Supple. No lymphadenopathy. CHEST: No respiratory distress. Clear to auscultation. MUSCULOSKELETAL: No bony tenderness. EXTREMITIES: Normal range of motion. No edema. SKIN: Warm, dry, no rash. Capillary refill normal. Normal skin turgor. NEURO: No focal deficits. Alert and oriented x3. Gait steady. PSYCH: Normal affect. No signs of depression or anxiety. Course Vital Signs Vital signs: Vital Signs Temperature 36.1 C L 01/05/21 08:20 Pulse Rate 82 01/05/21 08:20 Respiratory Rate 16 01/05/21 08:20 Blood Pressure 123/69 01/05/21 08:20 Pulse Oximetry 98 01/05/21 08:20 Temperature 36.1 C L 01/05/21 08:20 Pulse Rate 82 01/05/21 08:20 Respiratory Rate 16 01/05/21 08:20 Blood Pressure 123/69 01/05/21 08:20 Pulse Oximetry 98 01/05/21 08:20 Reviewed. MDM - URI/Sore Throat MDM Narrative Medical decision making narrative: Patient has a 3-day history of nasal abhilash
== END 2021-01-05 09:15 | disposition home or self-care (01) ==
PROVIDERS: Emergency Provider Nurse Practitioner Family; PCP Family Medicine
DX: B34.9 Viral infection, unspecified (principal); E03.9 Hypothyroidism, unspecified; E66.9 Obesity, unspecified; Z68.37 Body mass index [BMI] 37.0-37.9, adult
CPT/HCPCS: 99211; G0463

== ENCOUNTER 2021-03-14 18:09 | Emergency (ER) | payer OTHER, MEDICAID, SELFPAY ==
[2021-03-14 19:00] VITALS: BP 155/76; PULSE 86; RESP 18; TEMP 36.8; O2SAT 100
--- NOTE | 2021-03-14 19:42 | ED.URI ---
HPI - URI/Sore Throat General Chief Complaint: Upper Respiratory Infection Stated Complaint: Sore Throat History of Present Illness HPI Narrative: 36 y/o female presented for c/o SHANKS, body aches, fever, fatigue x2 days. endorses cough and PND starting today. Denies cp, sob, n/v/d. Has not taken anything for sx. Denies known sick contact. Vaccinated for covid. Related Data Home Medications Medication Instructions Recorded Confirmed thyroid (pork) [[employer] Thyroid] 15 mg PO DAILY 03/14/21 03/14/21 topiramate See Rx Instructions .ROUTE .COMPLEX 03/14/21 03/14/21 Allergies Allergy/AdvReac Type Severity Reaction Status Date / Time No Known Allergies Allergy Verified 03/14/21 19:14 Review of Systems Review of Systems: All systems reviewed & are unremarkable except as noted in HPI and below PMFSH Past Medical History Medical History Hypothyroidism IUP (intrauterine ), incidental Obesity Family History Family History Other No pertinent family history Social History Social History Smoking status: Never smoker Second hand tobacco smoke exposure: No Alcohol intake: current Substance use: never Gender identity (if verbalized by the patient): Female Spiritual care concerns: No Exam Const: General: no acute distress Orientation/consciousness: patient oriented x3 HENMT: Head: normal to inspection Throat: posterior oropharynx normal Neck: Neck: normal visual inspection and no lymphadenopathy Chest: Chest palpation & inspection: normal inspection of the chest Resp: Effort & Inspection: normal respiratory effort Auscultation: clear to auscultation bilaterally Cardio: Rate: regular rate Rhythm: regular rhythm GI: GI Palp: Yes Soft to palpation and Yes Tenderness to palpation present (GI) Skin: General skin exam: normal color Course Course Emergency Course: strep and flu swabs negative PCR covid pending dc with instructions on supportive care Level of Care: Express Care Visit Vital Signs Vital signs: Vital Signs Temperature 98.3 F 03/14/21 19:00 Pulse Rate 86 03/14/21 19:00 Respiratory Rate 18 03/14/21 19:00 Blood Pressure 155/76 H 03/14/21 19:00 Pulse Oximetry 100 03/14/21 19:00 Temperature 98.3 F 03/14/21 19:00 Pulse Rate 86 03/14/21 19:00 Respiratory Rate 18 03/14/21 19:00 Blood Pressure 155/76 H 03/14/21 19:00 Pulse Oximetry 100 03/14/21 19:00 MDM - URI/Sore Throat Differential Diagnosis Differential diagnosis: Likely upper respiratory infection, viral infection and influenza Lab Data Attestation: I reviewed the patient's lab results. Labs: Influenza A Screen Negative Reference Range: Negative Influenza B Screen Negative Reference Range: Negative Strep Screen Presumptive Negative *(Reference Range: Negative)* Discharge Plan Discharge Clinical Impression: Encounter for laboratory testing for COVID-19 virus Patient Disposition: Home, Self-Care Condition: Stable Instructions: Antibiotic Form, COVID-19 (Coronavirus Disease 2019) (ED) Additional Instructions: strep and flu negative Remain quarantine until the results of your Covid test are back. Should your test be positive, you need to complete a total of 5 days of quarantine. When you return to the public please wear an N95 mask. Tylenol 1000 mg every 8 hours as needed. You can take jlfr-xbf-[id number] Zyrtec and Flonase for sinus pressure and congestion. Prescriptions: No Action topiramate 25 mg tablet See Rx Instructions .ROUTE .COMPLEX RF: 0 thyroid (pork) [[employer] Thyroid] 15 mg tablet 15 mg PO DAILY RF: 0 Follow-
--- NOTE | 2021-03-14 20:01 | ED.URI ---
HPI - URI/Sore Throat General Chief Complaint: Upper Respiratory Infection Stated Complaint: Sore Throat Source: patient and RN notes reviewed Mode of arrival: ambulatory History of Present Illness HPI Narrative: 36 y/o female presented for c/o sore throat, SHANKS, fatigue, body aches x2 days. Endorses cough and PND starting today. Denies sob, n/v/d/f/c. Vaccinated for covid. Denies known sick contact. Related Data Home Medications Medication Instructions Recorded Confirmed thyroid (pork) [[employer] Thyroid] 15 mg PO DAILY 03/14/21 03/14/21 topiramate See Rx Instructions .ROUTE .COMPLEX 03/14/21 03/14/21 Allergies Allergy/AdvReac Type Severity Reaction Status Date / Time No Known Allergies Allergy Verified 03/14/21 19:14 Review of Systems Review of Systems: All systems reviewed & are unremarkable except as noted in HPI and below PMFSH Past Medical History Medical History Hypothyroidism IUP (intrauterine ), incidental Obesity Family History Family History Other No pertinent family history Social History Social History Smoking status: Never smoker Second hand tobacco smoke exposure: No Alcohol intake: current Substance use: never Gender identity (if verbalized by the patient): Female Spiritual care concerns: No Exam Const: General: no acute distress and ill appearing HENMT: Head: normal to inspection Neck: Neck: normal visual inspection and no lymphadenopathy Chest: Chest palpation & inspection: normal inspection of the chest Resp: Effort & Inspection: normal respiratory effort Auscultation: clear to auscultation bilaterally Cardio: Rate: regular rate Rhythm: regular rhythm GI: GI Palp: Yes Soft to palpation Skin: General skin exam: normal color Neuro: General: patient oriented x3 Course Course Emergency Course: strep and flu swabs neg covid PCR pending dc home with instructions on supportive care and quarantine. Level of Care: Express Care Visit Vital Signs Vital signs: Vital Signs Temperature 98.3 F 03/14/21 19:00 Pulse Rate 86 03/14/21 19:00 Respiratory Rate 18 03/14/21 19:00 Blood Pressure 155/76 H 03/14/21 19:00 Pulse Oximetry 100 03/14/21 19:00 Temperature 98.3 F 03/14/21 19:00 Pulse Rate 86 03/14/21 19:00 Respiratory Rate 18 03/14/21 19:00 Blood Pressure 155/76 H 03/14/21 19:00 Pulse Oximetry 100 03/14/21 19:00 MDM - URI/Sore Throat Differential Diagnosis Differential diagnosis: Likely upper respiratory infection, viral infection and influenza Lab Data Attestation: I reviewed the patient's lab results. Labs: Influenza A Screen Negative Reference Range: Negative Influenza B Screen Negative Reference Range: Negative Strep Screen Presumptive Negative *(Reference Range: Negative)* Discharge Plan Discharge Clinical Impression: Encounter for laboratory testing for COVID-19 virus Patient Disposition: Home, Self-Care Condition: Stable Instructions: Antibiotic Form, COVID-19 (Coronavirus Disease 2019) (ED) Additional Instructions: strep and flu negative Remain quarantine until the results of your Covid test are back. Should your test be positive, you need to complete a total of 5 days of quarantine. When you return to the public please wear an N95 mask. Tylenol 1000 mg every 8 hours as needed. You can take nlud-eik-ukazrzt Zyrtec and Flonase for sinus pressure and congestion. Prescriptions: No Action topiramate 25 mg tablet See Rx Instructions .ROUTE .COMPLEX RF: 0 thyroid (pork) [[employer] Thyroid] 15 mg tablet 15 mg PO DAILY RF: 0 Follow-up/Referrals
[2021-03-16 22:39] LABS: SARS-CoV-2 RNA PCR Positive
== END 2021-03-14 19:55 | disposition home or self-care (01) ==
PROVIDERS: Emergency Provider Nurse Practitioner Family; PCP Family Medicine
DX: U07.1 COVID-19 (principal); E03.9 Hypothyroidism, unspecified; E66.9 Obesity, unspecified; Z68.38 Body mass index [BMI] 38.0-38.9, adult
CPT/HCPCS: 87081; 87804; 87880; 99213; C9803; G0463; U0003; U0005

== ENCOUNTER 2021-06-13 11:58 | Emergency (ER) | payer OTHER, SELFPAY ==
--- NOTE | 2021-06-13 12:03 | ED.URI ---
HPI - URI/Sore Throat General Chief Complaint: Upper Respiratory Infection Stated Complaint: coughing aches sore throat Time Seen by Provider: 06/13/21 12:03 Source: patient and RN notes reviewed History of Present Illness HPI Narrative: Patient is a 36-year-old female who presents the urgent care with complaints of body aches, sore throat and cough. States that the body aches started Thursday, sore throat started today and she is had the cough for several days. Patient has been using Mucinex DM and Tylenol. Denies of any ill contacts. States no one else in the home has been sick. Denies of any known fever, nausea or vomiting. No other acute complaints. No acute distress noted. Patient aware of the plan of care. Some parts of this dictation were generated by voice recognition software and may contain typographical and/or grammatical inaccuracies. Related Data Home Medications Medication Instructions Recorded Confirmed thyroid (pork) [[place] Thyroid] 15 mg PO DAILY 03/14/21 06/13/21 rizatriptan 10 mg PO PRN PRN 06/13/21 06/13/21 Allergies Allergy/AdvReac Type Severity Reaction Status Date / Time No Known Allergies Allergy Verified 06/13/21 12:06 Review of Systems Review of Systems: CONSTITUTIONAL: Denies fever, chills, or sweats. EYES: Denies visual changes, redness, or discharge. ENT: Reports congestion, rhinorrhea, sore throat CARDIOVASCULAR: Denies chest pain, palpitations, or edema. RESPIRATORY: Reports of cough without dyspnea GASTROINTESTINAL: Denies abdominal pain, nausea, vomiting, or diarrhea. GENITOURINARY: Denies dysuria or hematuria. SKIN: Denies rash or itching. MUSCULOSKELETAL: Denies back pain, joint pain. Reports of body aches NEUROLOGIC: Denies headache, numbness, or weakness. All other systems reviewed are negative, except as documented in HPI. [facility] Past Medical History Medical History Hypothyroidism IUP (intrauterine ), incidental Obesity Family History Family History Other No pertinent family history Social History Social History Smoking status: Never smoker Second hand tobacco smoke exposure: No Alcohol intake: current Substance use: never Gender identity (if verbalized by the patient): Female Spiritual care concerns: No Comments At the time of my signature, I reviewed and agree with the nursing past medical, surgical, social, and family history. There is no relevant family history pertinent to the patient complaint. Exam Narrative: GENERAL: This is a well-nourished, well-developed patient. Appears slightly fatigued HEAD: normocephalic, atraumatic. EYES: PERRL. Sclera clear/white. Vision is grossly intact. EARS: External ears normal, auditory canals clear and without drainage, TMs normal without perforation. Hearing grossly intact. NOSE: External nose normal with no obvious nasal discharge, nares without redness, no rhinorrhea. THROAT: Mucous membranes moist, posterior pharynx clear. Moderate postnasal drainage NECK: Neck supple CARDIOVASCULAR: Regular rate and rhythm without murmurs, gallops, or rubs. RESPIRATORY: Clear to auscultation. Breath sounds equal bilaterally. No wheezes, rales, or rhonchi. SKIN: warm, intact with no suspicious lesions or rash, good texture and turgor. NEURO: awake, alert, and oriented to person, place and time. There were no obvious focal neurologic abnormalities. EXTREMITIES: No clubbing, cyanosis, or edema. Course Course Level of Care: Express Care Visit Vital Signs Vital signs: Vital Signs Temperature 97.6 F 06/13/21 12:06 Pulse Rate 86 06/13/21 12:06 Respiratory Rate 20 06/13/21 12:06 Blood Pressure 114/67 06/13/21 12:06 Pulse Oximetry 98 06/13/21 12:06 Temperature 97.6 F 06/13/21 12:06 Pulse Rate 86 06/13/21 12:06 Resp
[2021-06-13 12:06] VITALS: BP 114/67; PULSE 86; RESP 20; TEMP 36.4; O2SAT 98
== END 2021-06-13 12:37 | disposition home or self-care (01) ==
PROVIDERS: Emergency Provider Nurse Practitioner Family; PCP Family Medicine
DX: R05.9 Cough, unspecified (principal); E03.9 Hypothyroidism, unspecified; E66.9 Obesity, unspecified; Z68.38 Body mass index [BMI] 38.0-38.9, adult
CPT/HCPCS: 87081; 87804; 87880; 99213; G0463

== ENCOUNTER 2022-03-14 13:51 | Outpatient (CLI) | payer OTHER, SELFPAY ==
--- NOTE | ~2022-03-14 | MMUS_ITS ---
EXAMINATION: MM diagnostic radha BI w meg, US breast RT limited HISTORY: Palpable lump at the 12:00 location of the right breast and occasional dried milky discharge from the right nipple TECHNIQUE: Craniocaudal, mediolateral, and mediolateral oblique 3-D tomosynthesis images of the breas ts were performed and synthetic 2-D images were generated. CAD analysis was submitted and interpreted . High resolution limited right breast ultrasound was performed. COMPARISON: None, baseline BREAST PARENCHYMAL COMPOSITION: There are scattered areas of fibroglandular density. FINDINGS: MAMMOGRAPHIC FINDINGS: No suspicious mass, calcification, or architectural distortion are identified in either breast to sug gest malignancy. No mammographic correlate is identified for the reported palpable abnormality of con cern in the right breast or the patient's right nipple discharge. ULTRASOUND: There is no evidence of focal abnormal solid or cystic mass in the vicinity of the reported palpable abnormality of concern of the right breast. No sonographic correlate is identified for the patient's right nipple discharge. IMPRESSION: 1. No specific mammographic or sonographic correlate is identified for the reported palpable abnormal ity of concern in the right breast or the patient's right nipple discharge. Further evaluation at thi s time should be based on clinical assessment. Continued follow-up physical examination is recommende d. 2. Recommend routine screening mammography beginning at age 40. BI-RADS Category 1: Negative Reviewed, dictated and finalized at location A. O SURVEYOR IMPRESSION: 1. No specific mammographic or sonographic correlate is identified for the repo rted palpable abnormality of concern in the right breast or the patient's right nipple discharge. Further evaluation at this time should be based on clinical assessment. Continued follow-up physical examination is recommended. 2. Recommend routine screening mammography beginning at age 40. BI-RADS Category 1: Negative
== END 2022-03-14 13:52 | disposition home or self-care (01) ==
LOC: ANHIMG 13:55
PROVIDERS: PCP Nurse Practitioner; Visit Provider Nurse Practitioner
DX: N63.10 Unspecified lump in the right breast, unspecified quadrant (principal)
CPT/HCPCS: 76642; 77062; 77066; G0279

== ENCOUNTER 2022-04-06 12:56 | Emergency (ER) | payer OTHER, SELFPAY ==
--- NOTE | 2022-04-06 13:00 | ED.URI ---
HPI - URI/Sore Throat General Chief Complaint: Upper Respiratory Infection Stated Complaint: fever sore throat/ ears Time Seen by Provider: 04/06/22 13:16 Source: patient and RN notes reviewed Mode of arrival: ambulatory Limitations: no limitations History of Present Illness HPI Narrative: 37-year-old female for presents with concern for sore throat, headache, fevers, body aches. Reports symptoms started yesterday. Reports she has taken Sudafed without relief. MD elicited complaint: sore throat Related Data Home Medications Medication Instructions Recorded Confirmed levothyroxine 100 mcg tablet 100 mcg PO DIRECTED 04/06/22 04/06/22 metformin 500 mg tablet,extended 500 mg PO DIRECTED 04/06/22 04/06/22 release 24 hr spironolactone 50 mg tablet 50 mg PO DIRECTED 04/06/22 04/06/22 tirzepatide 5 mg/0.5 mL 7.5 mg subcut WEEKLY 04/06/22 04/06/22 subcutaneous pen injector ([place]) Allergies Allergy/AdvReac Type Severity Reaction Status Date / Time No Known Allergies Allergy Verified 04/06/22 13:02 Review of Systems Review of Systems: CONSTITUTIONAL: Reports malaise, fever. EYES: Denies visual changes, redness, or discharge. ENT: Reports rhinorrhea, congestion, sinus pain, otalgia and sore throat. CARDIOVASCULAR: Denies chest pain, palpitations, or edema. RESPIRATORY: Denies cough. Denies dyspnea. GASTROINTESTINAL: Denies abdominal pain, nausea, vomiting, diarrhea SKIN: Denies rash or itching. MUSCULOSKELETAL: Reports myalgia. NEUROLOGIC: Denies headache. All systems reviewed & are unremarkable except as noted in HPI and below PMFSH Past Medical History Medical History Hypothyroidism IUP (intrauterine ), incidental Obesity Family History Family History Other No pertinent family history Social History Social History Smoking status: Never smoker Second hand tobacco smoke exposure: No Alcohol intake: current Substance use: never Living arrangements: with family Gender identity (if verbalized by the patient): Female Spiritual care concerns: No Comments At time of signature, agree with nursing past medical, surgical, social and family history. There is no relevant family history pertinent to the presenting complaint Exam Narrative: GENERAL: Nontoxic-appearing and in no acute distress. HEAD: Normocephalic EYES: PERRLA, conjunctivae clear ENT: Nares clear. Mucous membranes moist. TM pearly castelan with dull light reflex bilaterally; no tragal tenderness. Oropharynx erythematous without lesions. Tonsils enlarged and without exudate, no drooling, no hoarseness, no trismus, uvula midline. NECK: Supple. No lymphadenopathy CHEST: Clear to auscultation, breath sounds equal. No wheezing, rhonchi, rales, or stridor. No respiratory distress, speaks in full sentences. HEART: Regular rate and rhythm. No murmur heard. SKIN: Warm, dry, no rash. NEURO: Alert and oriented x3. PSYCH: Normal mood and affect Course Course Emergency Course: Patient is aware of diagnosis, understands and agrees to treatment plan. Anticipatory guidance given. Patient agrees to follow-up as directed and is aware of reasons to seek care at the emergency department. Portions of this record may have been created with voice recognition software Level of Care: Express Care Visit Vital Signs Vital signs: Reviewed. MDM - URI/Sore Throat MDM Narrative Medical decision making narrative: Differential diagnosis considered: [place] virus, strep pharyngitis, allergic rhinitis, upper respiratory tract infection, sinusitis, rhinosinusitis, nasopharyngitis. viral pharyngitis, otitis media, otitis externa, pneumonia, bronchitis, viral cough syndrome, viral syndrome, and influenza. Exam findings show no acute concerns or changes; patient is non-toxic ap
[2022-04-06 13:01] VITALS: BP 111/69; PULSE 98; RESP 18; TEMP 36.4; O2SAT 99
== END 2022-04-06 13:30 | disposition home or self-care (01) ==
PROVIDERS: Emergency Provider Nurse Practitioner; PCP Family Medicine
DX: J02.0 Streptococcal pharyngitis (principal); E03.9 Hypothyroidism, unspecified; E66.9 Obesity, unspecified; Z68.35 Body mass index [BMI] 35.0-35.9, adult
CPT/HCPCS: 87804; 87880; 99213; G0463